=== PATIENT | female | born 1960 | race African-American/Black ===

== ENCOUNTER 2019-05-06 17:37 | Emergency (ER) | payer BC ==
[~2019-05-06] VITALS: Ht 149.9 cm; Wt 72.6 kg
[2019-05-06 18:55] VITALS: BP 127/76
[2019-05-06] MEDS ORDERED: GABA300C18 PO (19:09)
[2019-05-06] MEDS ORDERED: DICL100G18 TP (19:09)
--- NOTE | 2019-05-06 19:10 | PHYS DOC ---
Past Medical History Past Medical History: High Cholesterol Past Surgical History: Drug Use: None Adult General Chief Complaint Chief Complaint: FOOT INJURY PAIN HPI HPI Patient is a 58 year old female with hx of high cholesterol who presents to the ED today complaining of bilateral mild feet pain described as burning that began one and a half months ago after they got new shoes at work. Patient is employed at [employer] in the kitchen. She states since they were provided with new shoes at work she's had pain in her feet that radiates into her shins area, patient states the shoes exacerbates her pain, she states she has stopped wearing the shoes but is still experiencing pain. Denies any known injury. Denies anything specifically relieving the pain. Denies any calf pain. Review of Systems Review of Systems Constitutional: Denies fever or chills [] Musculoskeletal: Reports bilateral feet pain Integument: Denies rash or skin lesions [] Neurologic: Denies headache, focal weakness or sensory changes [] All other systems were reviewed and found to be within normal limits, except as documented in this note. Current Medications Current Medications Current Medications Medications (Trade) Dose Ordered Sig/Sabrina Start Time Stop Time Status Last Admin Dose Admin Acetaminophen/ Hydrocodone Bitart (Lortab 5/325) 1 tab 1X ONCE 05/06/19 19:15 05/06/19 19:16 Gabapentin (Neurontin) 300 mg 1X ONCE 05/06/19 19:15 05/06/19 19:16 Prednisone (Prednisone) 50 mg 1X ONCE 05/06/19 19:15 05/06/19 19:16 Allergies Allergies Allergies Coded Allergies Type Severity Reaction Last Updated Verified penicillin Allergy Intermediate 06/09/15 Yes Physical Exam Physical Exam Constitutional: Well developed, well nourished, no acute distress, non-toxic appearance. [] Skin: Warm, dry, no erythema, no rash. [] Back: No tenderness, no CVA tenderness. [] Extremities: No tenderness, no cyanosis, no clubbing, ROM intact, no edema. [] Neurologic: Alert and oriented X 3, normal motor function, normal sensory function, no focal deficits noted. [] Psychologic: Affect normal, judgement normal, mood normal. [] Current Patient Data Vital Signs Vital Signs Date Time Temp Pulse Resp B/P (MAP) Pulse Ox O2 Delivery O2 Flow Rate FiO2 05/06/19 18:55 98.7 58 16 127/76 (93) 96 Room Air 98.7 EKG EKG [] Radiology/Procedures Radiology/Procedures [] Course & Med Decision Making Course & Med Decision Making Pertinent Labs and Imaging studies reviewed. (See chart for details) This is a 58-year-old female patient presenting to the ED today with pain to bilateral feet consistent with plantar fasciitis. Discussed the importance of getting comfortable insoles for her shoes. Discussed the importance of following up with her correction officer or orthopedic doctor. Discharge with Voltaren cream and gabapentin. Dragon Disclaimer Dragon Disclaimer This electronic medical record was generated, in whole or in part, using a voice recognition dictation system. Departure Departure Impression: Primary Impression: Plantar fasciitis, bilateral Disposition: HOME, SELF-CARE Condition: STABLE Referrals: NO PCP (PCP) ADRIENNE SPAIN MD Follow-up in 1-2 weeks Patient Instructions: Plantar Fasciitis Additional Instructions: You were evaluated in the emergency room for foot pain. Consider getting comfortable insets for your shoes. Consider following up with an orthopedic doctor or correction officer as soon as you can take the prescribed medications as ordered. Scripts Diclofenac Sodium (VOLTAREN) 100 Gm Gel..gram. 1 GM TP QID, #100 GM 2 Refills Prov: WALT CUELLO APRN 05/06/19 Gabapentin (GABAPENTIN ) 300 Mg Capsule 300 MG PO TID for NEUROGENIC PAIN, #30 CAP Prov: WALT CUELLO APRN 05/06/19 WALT CUELLO APRN May 06, 2019 19:10
[2019-05-06] MEDS ORDERED: predniSONE 10 MG TABLET PO ONE (19:15)
[2019-05-06] MEDS ORDERED: HYDROcodone/APAP 5/325MG 1 TAB TABLET PO ONE (19:15)
[2019-05-06] MEDS ORDERED: GABAPENTIN 300 MG CAPSULE. PO ONE (19:15)
== END 2019-05-06 19:22 | disposition home or self-care (01) ==
LOC: ER 17:37
DX: M72.2 Plantar fascial fibromatosis (principal); E78.00 Pure hypercholesterolemia, unspecified; Z88.0 Allergy status to penicillin
CPT/HCPCS: 99284; J7512

== ENCOUNTER → 2020-06-07 | Outpatient (CLI) | payer OTHER ==
[~2020-06-07] MED LIST: DICL100G54 TP; GABA300C18 PO
== END | disposition home or self-care (01) ==
LOC: LAB 09:26
PROVIDERS: ATTEND Internal Medicine Pulmonary Disease
DX: Z20.828 Contact with and (suspected) exposure to other viral communicable diseases (principal)
CPT/HCPCS: 87426

== ENCOUNTER → 2020-08-30 | Outpatient (CLI) | payer OTHER | LOC: LAB 13:19 | PROVIDERS: ATTEND Internal Medicine Pulmonary Disease | DX: Z20.828 Contact with and (suspected) exposure to other viral communicable diseases (principal) | CPT/HCPCS: 87426; U0003 ==

== ENCOUNTER → 2021-03-22 | Outpatient (CLI) | payer OTHER ==
--- NOTE | 2021-03-22 10:43 | EKG ---
[facility] [address] [place] [address] Test Date: 2021-03-22 Test Time: 10:43:04 Pat Name: CINDY RUIZ Department: Room: Gender: F Senior [employer] Methods Specialist: : [id number] Requested By: MARIELENA MCCANN Order Number: [id number] Reading MD: Measurements Intervals [place] Rate: 60 P: 34 [place]: 164 QRS: 27 QRSD: 84 T: 26 QT: 406 QTc: 410 Interpretive Statements SINUS RHYTHM R-S TRANSITION ZONE IN V LEADS DISPLACED TO THE LEFT OTHERWISE NORMAL ECG RI6.01 Compared to ECG 11/13/2012 15:17:24 No significant changes
[2021-03-22 11:06] LABS: BASO % 1 % (0-3); EOS # 0.3 x10^3/uL (0.0-0.7); EOS % 4 % (0-3); HEMATOCRIT 39.5 % (36.0-47.0); HEMOGLOBIN 13.1 g/dL (12.0-15.5); LYMPH # 1.2 x10^3/uL (1.0-4.8); LYMPH % 15 % (24-48); MEAN CORPUSCULAR HEMOGLOBIN 30 pg (25-35); MEAN CORPUSCULAR HGB CONC 33 g/dL (31-37); MEAN CORPUSCULAR VOLUME 89 fL (79-100); MONO # 0.7 x10^3/uL (0.0-1.1); MONO % 10 % (0-9); NEUT # 5.5 x10^3/uL (1.8-7.7); NEUT % 71 % (31-73); PLATELET COUNT 189 x10^3/uL (140-400); RED BLOOD COUNT 4.42 x10^6/uL (3.50-5.40); WHITE BLOOD COUNT 7.7 x10^3/uL (4.0-11.0)
[2021-03-22 11:19] LABS: ALBUMIN 3.1 g/dL (3.4-5.0); ALBUMIN/GLOBULIN RATIO 0.8 (1.0-1.7); CALCIUM 8.5 mg/dL (8.5-10.1); CHOLESTEROL/HDL RATIO 3.9; CREATININE 0.8 mg/dL (0.6-1.0); GFR 88.8; POTASSIUM 4.2 mmol/L (3.5-5.1); TOTAL BILIRUBIN 0.3 mg/dL (0.2-1.0); TOTAL PROTEIN 6.9 g/dL (6.4-8.2)
[2021-03-23 01:15] LABS: HEMOGLOBIN A1C 6.7 % (4.8-5.6)
== END ==
LOC: LAB 10:20
PROVIDERS: ATTEND Nurse Practitioner Family
DX: Z00.00 Encounter for general adult medical examination without abnormal findings (principal); R01.1 Cardiac murmur, unspecified; E78.5 Hyperlipidemia, unspecified; E03.9 Hypothyroidism, unspecified; R53.83 Other fatigue
CPT/HCPCS: 36415; 80053; 80061; 82306; 83036; 84436; 84443; 85025; 93005

== ENCOUNTER → 2021-04-19 | Outpatient (CLI) | payer OTHER ==
--- NOTE | 2021-04-25 19:27 | SLEEP ---
DATE OF STUDY: 04/20/2021 HOME SLEEP STUDY REFERRING PHYSICIAN: Rubi Leigh MD. The patient is a 60-year-old who weighs 164 pounds with a BMI of 33. The patient's Boley score was 17. The patient underwent home sleep study performed at [facility]. Total recording time was 581 minutes. During the night study, the patient had 45 mixed apneas, 1 obstructive apnea, 11 central apneas and 31 hypopneas. The patient's AHI was 9.6 per hour. Nocturnal oximetry study revealed an average oxygen saturation 93% with a lowest of 77%. The 6.6 minutes were spent with oxygen saturation less than 90%. Mean heart rate 68 beats per minute. IMPRESSION: 1. Mild obstructive sleep apnea at an AHI of 9.6 per hour. 2. Mild nocturnal hypoxia secondary to obstructive sleep apnea. RECOMMENDATIONS: 1. The patient is clinically symptomatic with an Boley score of 17. If the patient has other comorbidities, then consider treating sleep apnea with CPAP. 2. Alternate treatment option would include oral appliance. 3. Once the patient is optimally treated, then follow up in 4-6 weeks to assess compliance and to document clinical improvement. 4. Weight loss to the ideal body weight is recommended. 5. Avoid PILLOW AGENT depressants. 6. Cautioned regarding driving until symptoms of sleep apnea resolve with above recommendations. REGINA MADISON: Pop TID: [id number] CC: RUBI LEIGH MD
== END ==
LOC: RT 08:05
PROVIDERS: ATTEND Family Medicine
DX: G47.10 Hypersomnia, unspecified (principal)
CPT/HCPCS: G0399

== ENCOUNTER → 2021-04-28 | Outpatient (CLI) | payer OTHER | LOC: LAB 14:03 | PROVIDERS: ATTEND Internal Medicine Pulmonary Disease | DX: U07.1 COVID-19 (principal) | CPT/HCPCS: U0003; U0005 ==